=== PATIENT | male | born 1950 | race Two or more races ===

== ENCOUNTER 2020-01-04 11:22 | Inpatient (IN) | payer OTHER ==
[2020-01-04] VITALS (8 sets, daily range): BP systolic 130–147; BP diastolic 37–43
[~2020-01-04] VITALS: Ht 180.3 cm; Wt 108.4 kg
[2020-01-04] MEDS ORDERED: cloNIDine HCL 0.1 MG TAB ONE (11:38)
[2020-01-04] MEDS ORDERED: cloNIDine HCL 0.1 MG TAB PO ONE (11:45)
[2020-01-04] MEDS ORDERED: hydrALAZINE HCL 20 MG/ML VL IV ONE (11:45)
[2020-01-04 12:10] LABS: INR 1.16 (0.9-1.15); Partial Thromboplastin Time 31.9 sec (23.0-31.2)
[2020-01-04 12:11] LABS: Basophils # (auto) 0 10 ^3/uL (0-0.2); Basophils % (auto) 0.2 % (0.0-2.0); Eosinophils # (auto) 0 10 ^3/uL (0-0.8); Eosinophils % (auto) 0.4 % (0.0-7.0); Hematocrit 44.1 % (41.0-53.0); Hemoglobin 14.5 g/dL (13.5-17.5); Lymphocytes # (auto) 0.8 10 ^3/uL (0.4-5.4); Lymphocytes % (auto) 8.9 % (10.0-50.0); Mean Corpuscular Hemoglobin 29.3 pg (28.0-32.0); Mean Corpuscular Hgb Conc. 32.8 g/dL (32.0-36.0); Mean Corpuscular Volume 89.4 fL (80.0-100.0); Monocytes # (auto) 0.9 10 ^3/uL (0-1.3); Monocytes % (auto) 10.2 % (0.0-12.0); Neutrophils # (auto) 7.4 10 ^3/uL (1.6-8.6); Neutrophils % (auto) 80.3 % (37.0-80.0); Platelet Count (auto) 149 10^3/uL (140-450); Red Blood Cells 4.94 10^6/uL (4.5-5.90); White Blood Cell 9.2 10^3/uL (4.4-10.8)
[2020-01-04 12:22] LABS: Albumin 3.4 g/dL (3.4-5.0); Calcium 8.9 mg/dL (8.5-10.1); Magnesium 2.3 mg/dL (1.6-2.6); Potassium 3.8 mmol/L (3.5-5.1)
[2020-01-04 12:30] LABS: BUN/Creatinine Ratio 19.6
[2020-01-04] MEDS ORDERED: FUROSEMIDE 40 MG/4 ML VIAL IV ONE (14:00)
[2020-01-04] MEDS ORDERED: ENALAPRILAT 1.25 MG/ML-1ML VIAL IV ONE (14:45)
[2020-01-04] MEDS ORDERED: APIX5TAB PO (16:26)
[2020-01-04] MEDS ORDERED: DILT180C49 PO (16:26)
[2020-01-04] MEDS ORDERED: BISO5TAB44 PO ×2 (16:26→16:28)
[2020-01-04] MEDS ORDERED: HYDR50TA15 PO (16:26)
[2020-01-04] MEDS ORDERED: TRAZ1TAB12 PO (16:26)
[2020-01-04] MEDS ORDERED: TERA2CAP45 PO (16:26)
[2020-01-04] MEDS ORDERED: ROSU1TAB14 PO (16:26)
[2020-01-04] MEDS ORDERED: PANT20TA59 PO (16:26)
[2020-01-04] MEDS ORDERED: SILD20TA12 OR (16:27)
[2020-01-04] MEDS ORDERED: SIME40DR15 PO (16:28)
[2020-01-04] MEDS ORDERED: LISI40TA11 PO (16:29)
[2020-01-04 16:42] LABS: Urine Bacteria NONE SEEN /hpf (None Seen); Urine Blood Negative /uL (Negative); Urine Mucus FEW (None Seen); Urine Specific Gravity 1.014 (1.001-1.035); Urine WBC 1 /hpf (0 - 3)
[2020-01-04] MEDS ORDERED: NITROGLYCERIN 50MG/250ML 250 ML IV ONE (16:44)
[2020-01-04] MEDS ORDERED: DOPamine 1600MCG/ML D5W 250 ML IV ONE (16:44)
[2020-01-04] MEDS: NITROGLYCERIN 50MG/250ML 250 ML IV SCH ×2 (16:45→17:10)
[2020-01-04] MEDS ORDERED: MORPHINE SULF INJ 2 MG/ML SYRINGE 1ML IV PRN (16:45)
[2020-01-04] MEDS ORDERED: NITROGLYCERIN 0.4 MG SL TAB SL PRN (16:45)
[2020-01-04] MEDS: DOPamine 1600MCG/ML D5W 250 ML IV SCH ×2 (16:45→17:47)
[2020-01-04] MEDS ORDERED: ONDANSETRON HCL 4 MG/2 ML VIAL ONE (18:58)
[2020-01-04] MEDS ORDERED: ONDANSETRON HCL 4 MG/2 ML VIAL IV ONE (19:00)
[2020-01-04] MEDS ORDERED: ASPirin-EC 81 mg tab PO ONE (19:45)
[2020-01-04] MEDS ORDERED: GLUCAGON HYDROCHLORIDE (RDNA) 1 MG VIAL IV ONE (19:45)
--- NOTE | 2020-01-04 20:40 | NUR ---
Admit to ICU from [facility] admitted to ICU via aliarjimi on property assessment monitor, Patient transfered to bed. Patient connected to ICU monitoring, weighed by bedscale, oriented to KEVIN TEJEDA RN primary RN, unit. Patient is A/O x4 and verbalized understanding of all teaching provided and POC. Patient currently on Nitro and Dopamine drip at this time. RN will continue to monitor and assess patient.
--- NOTE | 2020-01-04 21:00 | NUR ---
Oxymizer: Patient taken off Non-rebreather and placed on Oxymizer due to patient saturating well. Patient still saturating at 97% on Oxymizer with no s/s of dyspnea.
--- NOTE | 2020-01-04 21:20 | NUR ---
called: called and was updated on patient condition and POC.
[2020-01-04] MEDS ORDERED: ATORVASTATIN 20 MG TAB PO SCH (22:00)
--- NOTE | 2020-01-04 23:16 | NUR ---
Dr. Cuevas paged: Dr. Cuevas paged d/t patient's heart rate ranging from 36-[address] Cuevas responded immediately. MD was made aware of patient's current condition, BP, HR and drips. Per MD, do not titrate Dopamine above 10mcg at this time due to patients blood pressure stable. RN will continue to monitor and assess.
--- NOTE | 2020-01-04 23:20 | NUR ---
Dr. Cuevas: Dr. Cuevas called RN back. MD wants patient scheduled for a pacemaker tomorrow. RN will schedule procedure and have patient sign consents.
[2020-01-05] VITALS (78 sets, daily range): BP systolic 12–187; BP diastolic 37–107
[2020-01-05 04:08] LABS: Basophils # (auto) 0 10 ^3/uL (0-0.2); Basophils % (auto) 0.2 % (0.0-2.0); Eosinophils # (auto) 0 10 ^3/uL (0-0.8); Eosinophils % (auto) 0.1 % (0.0-7.0); Hematocrit 42.4 % (41.0-53.0); Hemoglobin 13.8 g/dL (13.5-17.5); Lymphocytes # (auto) 0.7 10 ^3/uL (0.4-5.4); Lymphocytes % (auto) 8.2 % (10.0-50.0); Mean Corpuscular Hemoglobin 29.6 pg (28.0-32.0); Mean Corpuscular Hgb Conc. 32.7 g/dL (32.0-36.0); Mean Corpuscular Volume 90.8 fL (80.0-100.0); Monocytes # (auto) 1.2 10 ^3/uL (0-1.3); Monocytes % (auto) 13.8 % (0.0-12.0); Neutrophils % (auto) 77.7 % (37.0-80.0); Nucleated Red Blood Cells % 0.1 %; Platelet Count (auto) 142 10^3/uL (140-450); Red Blood Cells 4.67 10^6/uL (4.5-5.90); Red Cell Distribution Width 14.5 % (11.8-14.3)
[2020-01-05 04:24] LABS: Potassium 3.8 mmol/L (3.5-5.1)
[2020-01-05 04:32] LABS: Albumin 3.1 g/dL (3.4-5.0); BUN/Creatinine Ratio 23.4; Bilirubin, Total 1.4 mg/dL (0.2-1.0); Calcium 8.6 mg/dL (8.5-10.1); Total Protein 6.4 g/dL (6.4-8.2)
--- NOTE | 2020-01-05 04:55 | NUR ---
Dr. Cuevas paged: Dr. Cuevas paged d/t patient developing pauses and remains bradycardic with a HR of 38. RN awaiting call back.
[2020-01-05] MEDS ORDERED: ATROPINE SULFATE 0.4 MG/1 ML VIAL ONE (05:11)
[2020-01-05 05:12] LABS: INR 1.21 (0.9-1.15); Partial Thromboplastin Time 29.6 sec (23.0-31.2)
[2020-01-05] MEDS: DOPamine 1600MCG/ML D5W 250 ML IV SCH ×3 (05:22→10:34)
--- NOTE | 2020-01-05 06:52 | NUR ---
Family: called, password was verified. updated on patient condition and POC.
--- NOTE | 2020-01-05 07:30 | NUR ---
REPORT REPORT RECEIVED FROM MAYELIN RNKEVIN. BEDSIDE CHECK DONE. PT DENIES ANY PAIN OR SOB.
--- NOTE | 2020-01-05 07:53 | NUR ---
ASSESSMENT PT AWAKE AND A/O X4. ABLE TO MOVE ALL EXTREMITIES AND FOLLOW SIMPLE COMMANDS. LUNGS CLEAR THROUGHOUT. O2 AT 10 L/M VIA OXYMIZER WITH O2 SAT OF 96%. TELE ATRIAL FIB/FLUTTER , RATE OF 89, WITH NOTCHED QRS LEADS I/II AND ELEVATED ST IN LEAD I WITH BBB. PALPABLE PULSES TO ALL EXTREMITIES WITH NO EDEMA NOTED. SCDS TO BLE. ABD SOFT WITH + BOWEL SOUNDS. LAST BM WAS 01/03. STEVENS CATHETER DRAINING CLEAR DARK YELLOW URINE. SKIN IS INTACT. PT STATES MILD ACHE UNDER LEFT ARM WHEN HE MOVES THE ARM, BUT OTHERWISE COMFORTABLE. PT CURRENTLY ON DOPAMINE AT 10 MCG AND NITROGLYCERIN AT 20 MCG. CONTINUE TO MONITOR.
--- NOTE | 2020-01-05 09:03 | NUR ---
INGRID, SENIOR NET PROGRAMMER, AT THE BEDSIDE.
[2020-01-05] MEDS ORDERED: OPTISON 3ml Vial for INJ IV ONE ×2 (09:22→09:30)
--- NOTE | 2020-01-05 09:34 | NUR ---
ADMINISTERED OPTISON DURING ECHOCARDIOGRAM. BP OF 112/58 AND SO TITRATED DOWN ON NTG DRIP.
[2020-01-05] MEDS: PANTOPRAZOLE 40 MG/10 ML VIAL INJ IV SCH (10:03)
--- NOTE | 2020-01-05 10:33 | NUR ---
HAD TO HANG A NEW BAG OF DOPAMINE PREVIOUS BAG WAS LEAKING.
[2020-01-05] MEDS ORDERED: fentaNYL CITRATE 100 MCG/2 ML VL ONE (12:38)
[2020-01-05] MEDS ORDERED: MIDAZOLAM HCL 1MG/1ML-2 ML VIAL ONE (12:38)
[2020-01-05] MEDS ORDERED: VANCOMYCIN 1GM/250ML 250 ML IV ONE (12:38)
[2020-01-05] MEDS ORDERED: VANCOMYCIN HCL 1000 MG VL ONE (12:38)
[2020-01-05] MEDS ORDERED: LIDOCAINE 2%HCL (LOCAL ANESTH.) INJ 20ML MDV ONE (12:46)
[2020-01-05] MEDS ORDERED: fentaNYL CITRATE 100 MCG/2 ML VL IV ONE (13:00)
[2020-01-05] MEDS ORDERED: fentaNYL CITRATE 100 MCG/2 ML VL IM ONE (13:00)
--- NOTE | 2020-01-05 13:45 | NUR ---
RECEIVED PT BACK FROM PROFESSOR OF ARCHAEOLOGY AND CONNECTED TO BEDSIDE MONITORING. PT GROGGY BUT RESPONDS TO NAME. FALLS BACK ASLEEP WHEN NOT STIMULATED. PT WITH DRESSING AND SAFEGUARD IN PLACE TO LEFT SUBCLAVIAN, DRESSING IS CLEAN , DRY AND INTACT. LEFT ARM IN SLING. ICE PACK APPLIED TO AREA. PT ABLE TO WIGGLE FINGERS AND THEY ARE WARM TO THE TOUCH WITH QUICK CAPILLARY REFILL. PT DENIES ANY PAIN. VS: 72-18-95% ON L2 AT 2 L/M VIA OXYMIZER, BP 127/57. TELE ABOUT 90% PACED. CONTINUE TO MONITOR. Addendum: 01/05/20 at 1504 by Katie Bailey RN PT WITH VANCOMYCIN DOSE INFUSING.
[2020-01-05] MEDS ORDERED: DEXTROSE (50%) 50ML SYRG IV PRN (14:00)
--- NOTE | 2020-01-05 14:00 | NUR ---
TRANSFER PT TO ICU 110 VIA BED, MONITOR, 02. PRIMARY RN KATERINA AT BEDSIDE. TRANSFERRED TO BEDSIDE MONITOR AND 02. DRSG TO LEFT UPPER CHEST C/D/I. SLING PLACED ON PT. PT DENIES PAIN AT THIS TIME. TRANSFER SERVICES TO HABILITATION TRAINING SPECIALIST
--- NOTE | 2020-01-05 14:06 | NUR ---
LINING MAKER HAND- 25MCG IVP FENTANYL GIVEN ONLY NOT 75 MCG GIVEN IN MED PYXIS, NOTIFIED PETER PHARMACIST.
--- NOTE | 2020-01-05 15:00 | NUR ---
PT RESTING QUIETLY WITH VSS: 70-16-97% 122/55. STARTED FIRST DOSE OF ANCEF. PT TO RECEIVE TWO DOSES.
[2020-01-05] MEDS: ceFAZolin 1GM/50ML 50 ML IV SCH ×2 (15:07→21:30)
--- NOTE | 2020-01-05 15:13 | NUR ---
PATIENT JUST BACK FROM [facility]. ATTEMPT P.T. EVALUATION TOMORROW.
--- NOTE | 2020-01-05 16:00 | NUR ---
PT WAKING UP MORE AND TAKING A FEW ICE CHIPS.
--- NOTE | 2020-01-05 17:00 | NUR ---
PT DOZING OFF AND ON.
[2020-01-05] MEDS: ACCU-CHEK COMFORT CURVE STRIP VI SCH (18:00)
[2020-01-05] MEDS: InsuLIN REG 1unit/0.01ml Soln (100units/ml) SC SCH (18:00)
--- NOTE | 2020-01-05 18:00 | NUR ---
CALLED DR AGUIRRE AND LEFT A MESSAGE NOTIFYING OF SBP 160-170 AND INQUIRING WHETHER TO RESTART NTG DRIIP OR DOES HE WANT TO START THE PT BACK ON HIS HOME MEDS.
--- NOTE | 2020-01-05 18:50 | NUR ---
PAGED DR AGUIRRE THROUGH HIS EXCHANGE NO RETURN CALL AND PT'S BP IS 166/107.
--- NOTE | 2020-01-05 19:00 | NUR ---
Opening Shift Note Assumed care of patient, awake and alert. No S/S of distress/SOB or pain. Instructed on POC and to call for assist PRN, will continue to monitor for changes Q1hr and PRN.
--- NOTE | 2020-01-05 19:00 | NUR ---
TEXTED DR AGUIRRE ASKING HIM TO CALL REGARDING THE PT'S ELEVATED BP.
--- NOTE | 2020-01-05 19:26 | NUR ---
Hospitalist paged: Hospitalist paged d/t patient experiencing elevated blood pressure. Hospitalist returned page immediately and was made aware of patients condition and situation. New orders received and verified.
[2020-01-05] MEDS ORDERED: hydrALAZINE HCL 20 MG/ML VL IV PRN (19:30)
--- NOTE | 2020-01-05 19:30 | NUR ---
DR AGUIRRE ORDERED CLONIDINE 0.2 MG PO TID.
--- NOTE | 2020-01-05 19:30 | NUR ---
REPORT REPORT GIVEN TO KEVIN DICK RN.
[2020-01-05] MEDS: hydrALAZINE HCL 25 MG TAB PO SCH (19:39)
--- NOTE | 2020-01-05 19:44 | NUR ---
2200 BP medication given: RN administered patients 2200 Hydralazine early per MD to help manage patients BP. RN will continue to monitor and assess patient.
--- NOTE | 2020-01-05 19:45 | NUR ---
Pacemaker being checked by manufacture parts sales representative. Patient currently stable and in no s/s of discomfort or distress.
--- NOTE | 2020-01-05 20:50 | NUR ---
: RN spoke with patients . Password was verified. Family updated on patient condition and POC. appreciative of patients care being provided and thankful.
[2020-01-05] MEDS: cloNIDine HCL 0.1 MG TAB PO SCH (21:36)
[2020-01-05] MEDS ORDERED: ATORVASTATIN 20 MG TAB PO SCH (22:00)
--- NOTE | 2020-01-05 22:30 | NUR ---
Hospitalist paged: Hospitalist was paged d/t patients PRN IV hydralazine currently out of stock, only PO method available and in stock. Hospitalist returned page and new orders obtained and verified.
--- NOTE | 2020-01-05 22:40 | NUR ---
IV to right hand D/C'd. IV to right hand D/C'd d/t infiltration. Catheter fully intact. Patient tolerated intervention well with no s/s of discomfort or distress.
[2020-01-05] MEDS ORDERED: hydrALAZINE HCL 25 MG TAB PO PRN (22:45)
[2020-01-06] VITALS (31 sets, daily range): BP systolic 113–164; BP diastolic 46–70
[2020-01-06] MEDS: ACCU-CHEK COMFORT CURVE STRIP VI SCH ×2 (00:04→04:45)
[2020-01-06 03:43] LABS: Basophils # (auto) 0 10 ^3/uL (0-0.2); Basophils % (auto) 0.4 % (0.0-2.0); Eosinophils # (auto) 0.1 10 ^3/uL (0-0.8); Eosinophils % (auto) 1.6 % (0.0-7.0); Hematocrit 38.4 % (41.0-53.0); Hemoglobin 12.7 g/dL (13.5-17.5); Lymphocytes # (auto) 0.6 10 ^3/uL (0.4-5.4); Lymphocytes % (auto) 9.8 % (10.0-50.0); Mean Corpuscular Hemoglobin 29.5 pg (28.0-32.0); Mean Corpuscular Hgb Conc. 33.1 g/dL (32.0-36.0); Mean Corpuscular Volume 89.1 fL (80.0-100.0); Monocytes # (auto) 0.9 10 ^3/uL (0-1.3); Monocytes % (auto) 13.5 % (0.0-12.0); Neutrophils # (auto) 4.7 10 ^3/uL (1.6-8.6); Neutrophils % (auto) 74.7 % (37.0-80.0); Platelet Count (auto) 118 10^3/uL (140-450); Red Blood Cells 4.31 10^6/uL (4.5-5.90); Red Cell Distribution Width 14.3 % (11.8-14.3); White Blood Cell 6.4 10^3/uL (4.4-10.8)
[2020-01-06 03:57] LABS: Potassium 4.1 mmol/L (3.5-5.1)
[2020-01-06 04:07] LABS: Albumin 2.6 g/dL (3.4-5.0); BUN/Creatinine Ratio 29.4; Bilirubin, Total 1.2 mg/dL (0.2-1.0); Calcium 8.3 mg/dL (8.5-10.1); Magnesium 2.3 mg/dL (1.6-2.6); Total Protein 5.8 g/dL (6.4-8.2)
--- NOTE | 2020-01-06 04:28 | NUR ---
Morning 12 Lead EKG performed: Strip placed in chart.
[2020-01-06] MEDS: hydrALAZINE HCL 25 MG TAB PO SCH (04:44)
--- NOTE | 2020-01-06 04:45 | NUR ---
BS: Patient wanted morning scheduled ACCU Check performed now so he may rest and not be woken up later in the morning.
[2020-01-06] MEDS: InsuLIN REG 1unit/0.01ml Soln (100units/ml) SC SCH ×2 (04:48)
[2020-01-06] MEDS: cloNIDine HCL 0.1 MG TAB PO SCH (06:00)
[2020-01-06] MEDS: PANTOPRAZOLE 40 MG/10 ML VIAL INJ IV SCH (10:07)
--- NOTE | 2020-01-06 10:47 | NUR ---
PATIENT HAD A PACEMAKER DONE YESTERDAY . DR AGUIRRE SAID THAT PATIENT CAN BE DISCHARGED TODAY. DR MALONEY CAME AND SPOKE TO THE PATIENT SOME DISCHARGE INSTRUCTIONS. PATIENT 'S OXYGEN REMOVED / AND 02 SAT 90 - 92 % STEVENS CATHETER REMOVED. AND DRESSING ON THE PACEMAKER INCISION SITE REMOVED AND REPLACED WITH 4X4 DRESSING. NO ACTIVE BLEEDING NOTED.
[2020-01-06] MEDS ORDERED: DOXY-286 PO (11:09)
--- NOTE | 2020-01-06 14:36 | NUR ---
patient discharge to home via wheelchair . d/dc instructions given iv removed .
== END 2020-01-06 14:15 | disposition home or self-care (01) | DRG 242 ==
LOC: EDBD 11:22 → ER 11:22 → TELE 11:23 → ICU WEST 20:35
PROVIDERS: ADMIT Nurse Practitioner Acute Care; ATTEND Internal Medicine
PROC: 0JH604Z Insertion of Pacemaker, Single Chamber into Chest Subcutaneous Tissue and Fascia, Open Approach (ICD-10-PCS; principal; 2020-01-05)
PROC: 02HK3JZ Insertion of Pacemaker Lead into Right Ventricle, Percutaneous Approach (ICD-10-PCS; 2020-01-05)
DX: I49.5 Sick sinus syndrome (principal); I21.A1 Myocardial infarction type 2; I50.43 Acute on chronic combined systolic (congestive) and diastolic (congestive) heart failure; I16.9 Hypertensive crisis, unspecified; D68.59 Other primary thrombophilia; Z20.828 Contact with and (suspected) exposure to other viral communicable diseases; I48.91 Unspecified atrial fibrillation; I11.0 Hypertensive heart disease with heart failure; E66.9 Obesity, unspecified; I07.1 Rheumatic tricuspid insufficiency; I25.10 Atherosclerotic heart disease of native coronary artery without angina pectoris; F32.9 Major depressive disorder, single episode, unspecified; F41.9 Anxiety disorder, unspecified; E11.21 Type 2 diabetes mellitus with diabetic nephropathy; Z79.01 Long term (current) use of anticoagulants; Z95.1 Presence of aortocoronary bypass graft; Z68.33 Body mass index [BMI] 33.0-33.9, adult; Z79.84 Long term (current) use of oral hypoglycemic drugs; Z79.899 Other long term (current) drug therapy; Z88.8 Allergy status to other drugs, medicaments and biological substances
CPT/HCPCS: 36415; 36600; 71045; 80053; 80061; 81001; 82805; 82962; 83036; 83735; 83880; 84443; 84484; 85025; 85610; 85730; 86850; 86900; 86901; 87081; 87426; 93005; 93306; 96374; 96375; 99152; 99153; C9113; G0378; J0461; J0690; J2250; J2405; Q9956

== ENCOUNTER 2021-08-27 09:11 | Emergency (ER) | payer OTHER ==
[~2021-08-27] VITALS: Ht 180.3 cm; Wt 106.6 kg
[~2021-08-27 09:11] MED LIST: APIX5TAB PO; BISO5TAB44 PO; DILT180C49 PO; DOXY-286 PO; HYDR50TA15 PO; LISI40TA11 PO; PANT20TA59 PO; ROSU1TAB14 PO; SILD20TA12 OR; SIME40DR15 PO; TERA2CAP45 PO; TRAZ1TAB12 PO
[2021-08-27 10:24] LABS: Basophils # (auto) 0 10 ^3/uL (0-0.2); Basophils % (auto) 0.2 % (0.0-2.0); Eosinophils # (auto) 0.1 10 ^3/uL (0-0.8); Eosinophils % (auto) 0.8 % (0.0-7.0); Hematocrit 42.5 % (41.0-53.0); Lymphocytes # (auto) 0.5 10 ^3/uL (0.4-5.4); Mean Corpuscular Hemoglobin 29.5 pg (28.0-32.0); Mean Corpuscular Hgb Conc. 32.8 g/dL (32.0-36.0); Mean Corpuscular Volume 89.7 fL (80.0-100.0); Monocytes # (auto) 0.4 10 ^3/uL (0-1.3); Monocytes % (auto) 5.9 % (0.0-12.0); Neutrophils # (auto) 6.2 10 ^3/uL (1.6-8.6); Neutrophils % (auto) 86.1 % (37.0-80.0); Red Blood Cells 4.74 10^6/uL (4.5-5.90); Red Cell Distribution Width 15.2 % (11.8-14.3); White Blood Cell 7.2 10^3/uL (4.4-10.8)
[2021-08-27] MEDS ORDERED: IOHEXOL 350 MG/ML 100ML IJ ONE (11:25)
[2021-08-27 11:29] LABS: Albumin 3.3 g/dL (3.4-5.0); Calcium 8.7 mg/dL (8.5-10.1); Potassium 4.4 mmol/L (3.5-5.1)
[2021-08-27] MEDS ORDERED: ASPirin 81 mg TAB PO ONE (11:30)
[2021-08-27 11:33] LABS: BUN/Creatinine Ratio 22.1; Bilirubin, Total 0.4 mg/dL (0.2-1.0); Total Protein 7.1 g/dL (6.4-8.2)
[2021-08-27] MEDS ORDERED: MORPHINE SULFATE INJ 2 MG/ml SYRG IV ONE (12:45)
[2021-08-27] MEDS ORDERED: ONDANSETRON HCL 4 MG/2 ML VIAL IV ONE (12:45)
[2021-08-27 13:25] LABS: Urine Bacteria NONE SEEN /hpf (None Seen); Urine Blood Negative /uL (Negative); Urine Specific Gravity 1.016 (1.001-1.035); Urine WBC <1 /hpf (0 - 3)
[2021-08-27 20:33] VITALS: BP 154/64
== END 2021-08-27 21:15 | disposition short-term general hospital (02) ==
LOC: ER 09:11 → EDBD 09:11 → ER 21:15
DX: I24.9 Acute ischemic heart disease, unspecified (principal); I49.9 Cardiac arrhythmia, unspecified; R79.1 Abnormal coagulation profile; E11.9 Type 2 diabetes mellitus without complications; I10 Essential (primary) hypertension; Z90.49 Acquired absence of other specified parts of digestive tract; Z20.822 Contact with and (suspected) exposure to COVID-19
CPT/HCPCS: 36415; 71045; 71275; 80053; 81001; 83880; 84484; 85025; 85379; 87426; 93005; 99291; Q9967